=== PATIENT | female | born 1990 | race Caucasian/White ===

== ENCOUNTER 2020-04-30 04:57 | Observation (INO) | payer MEDICAID, SELFPAY ==
--- NOTE | ~2020-04-30 | CT_ITS ---
EXAMINATION: CT abdomen pelvis w con DATE: 04/30/2020 07:34 INDICATION: Left flank pain TECHNIQUE: Computed tomography (CT) of the abdomen and pelvis was performed with 100 cc Omnipaque 350 intravenous contrast. Automated exposure control and iterative reconstruction technique were employe d. Exam dose: 367.77 mGy-cm total exam DLP. COMPARISON: 04/06/2018 KUB FINDINGS: There are patchy pulmonary infiltrates of the middle lobe and both lower lobes. Normal heart size. No pericardial or pleural effusion. The liver, gallbladder, bile ducts, spleen, pancreas and pancreatic duct as well as adrenal glands an d kidneys are unremarkable. No urinary tract calculus or hydroureteronephrosis is evident. Normal caliber of the abdominal aorta. No intraperitoneal or retroperitoneal or pelvic mass lesion or adenopathy or ascites. Normal appendix. No bowel obstruction, bowel wall thickening, pneumatosis or intraperitoneal free air is evident. Included skeletal structures are unremarkable. IMPRESSION: No urinary tract calculus or hydroureteronephrosis Reviewed, dictated and finalized at [facility]. Reviewed, dictated and finalized at location A.
--- NOTE | ~2020-04-30 | XR_ITS ---
XR chest 1V portable DATE: 04/30/2020 09:47 INDICATION: Pneumonia TECHNIQUE: Portable upright AP chest on 04/30/2020 at 0949 hours COMPARISON: None FINDINGS: There are patchy infiltrates in the mid to lower lung zones, left greater than right, inclu ding some patchy consolidation on the left, involving particularly the lower lobe. Heart size is normal. No hilar or mediastinal enlargement. No pleural effusion or pulmonary vascular congestion or pneumothorax. Included skeletal structures are unremarkable. IMPRESSION: Bilateral patchy mid to lower lungs infiltrates, left greater than right, consistent with clinical diagnosis of pneumonia Reviewed, dictated and finalized at location B.
--- NOTE | ~2020-04-30 | CT_ITS ---
EXAMINATION: CTA chest PE protocol DATE: 04/30/2020 10:28 INDICATION: Severe left lower chest pain TECHNIQUE: Computed tomography angiography (CTA) of the chest was performed with 100 mL Omnipaque-350 intravenous contrast timed to evaluate the pulmonary arteries. Coronal maximum intensity projection 3D-reconstructions were created by the technologist. The dose-length product (DLP) was 153.87 mGy-cm. Automated exposure control and iterative reconstruction technique were employed. COMPARISON: None. FINDINGS: The pulmonary arteries are well-opacified. No pulmonary embolism is identified. There are p atchy nodular and airspace opacities of the lower lobes and right middle lobe, worst in the left lowe r lobe. Endobronchial material is seen in the lower lobes. There is no pleural effusion or pneumothor ax. Borderline size perihilar lymph nodes are likely reactive. Triangular soft tissue density of the anterior mediastinum is consistent with residual thymus. The heart size is normal. The visualized oss eous structures are unremarkable. IMPRESSION: 1. No pulmonary embolism. 2. Multifocal pneumonia with endobronchial mucous in the lower lobes. Reviewed, dictated and finalized at location A.
--- NOTE | 2020-04-30 05:04 | ED.ABDPAIN ---
HPI - Abdominal Pain General Chief Complaint: Abdominal Pain <Marisol Reagan MD - Last Filed: 05/01/20 12:27> Stated Complaint: abd pain <Marisol Reagan MD - Last Filed: 05/01/20 12:27> Time Seen by Provider: 04/30/20 05:02 <Marisol Reagan MD - Last Filed: 05/01/20 12:27> History of Present Illness HPI narrative: Patient presents with severe left flank pain. Started last night about 5:00. She gauges that 11 out of 1-10 scale. She says that she cannot sit up or lay on her back. She is on the exam table with her bottom up in the air, resisting help with undressing. She said she has nausea but no vomiting. She is never had pain like this before. When I asked her if she does drugs she said no, and I confronted her with her previous drug screen which was positive for marijuana and amphetamines. Then she admitted that she does them. <Marisol Reagan MD - Last Filed: 05/01/20 12:27> MD elicited complaint: abdominal pain <Marisol Reagan MD - Last Filed: 05/01/20 12:27> Pertinent past history: none <Marisol Reagan MD - Last Filed: 05/01/20 12:27> Onset (ago): hour(s) <Marisol Reagan MD - Last Filed: 05/01/20 12:27> Pain Consistency: constant <Marisol Reagan MD - Last Filed: 05/01/20 12:27> Location: L flank <Marisol Reagan MD - Last Filed: 05/01/20 12:27> Severity: severe <Marisol Reagan MD - Last Filed: 05/01/20 12:27> Radiation: none <Marisol Reagan MD - Last Filed: 05/01/20 12:27> Exacerbating factors: movement <Marisol Reagan MD - Last Filed: 05/01/20 12:27> Relieving factors: nothing <Marisol Reagan MD - Last Filed: 05/01/20 12:27> Related Data Home Medications: Home Medications Medication Instructions Recorded Confirmed No Home Medications 04/30/20 04/30/20 <Marisol Reagan MD - Last Filed: 05/01/20 12:27> Allergies/Adverse Reactions: Allergies Allergy/AdvReac Type Severity Reaction Status Date / Time Penicillins Allergy Unknown Unknown Verified 04/30/20 05:04 <Marisol Reagan MD - Last Filed: 05/01/20 12:27> Review of Systems Review of Systems: Narrative: CONSTITUTIONAL: Denies fever, chills, or sweats. EYES: Denies visual changes, redness, or discharge. ENT: Denies rhinorrhea, congestion, sore throat, or otalgia. CARDIOVASCULAR: Denies chest pain, palpitations, or edema. RESPIRATORY: Denies cough or dyspnea. GASTROINTESTINAL: She has severe abdominal pain, but not nausea, vomiting, or diarrhea. GENITOURINARY: Denies dysuria or hematuria. SKIN: Denies rash or itching. MUSCULOSKELETAL: Denies back pain, joint pain, or myalgia. NEUROLOGIC: Denies headache, numbness, or weakness. . <Marisol Reagan MD - Last Filed: 05/01/20 12:27> All systems reviewed & are unremarkable except as noted in HPI and below <Marisol Reagan MD - Last Filed: 05/01/20 12:27> [facility] Past Medical History Medical History: Medical History (Updated 04/30/20 @ 18:08 by Marilee Hill MD) Abscess incision and drainage of an abscess to her arm. Polysubstance abuse she was found to be positive for amphetamines and marijuana today STD exposure <Marisol Reagan MD - Last Filed: 05/01/20 12:27> Surgical History Surgical History: Surgical History (Updated 04/30/20 @ 05:16 by Marisol Reagan MD) No pertinent past surgical history <Marisol Reagan MD - Last Filed: 05/01/20 12:27> Family History Family History: Family History (Updated 04/30/20 @ 17:11 by Lizzie Paris NP) Unknown Healthy adult the patient stated that her parents are healthy and siblings are healthy. Her her sister had been a heroin addict but states that her sister has recovered. <Marisol Reagan MD - Last Filed: 05/01/20 12:27> Social History Social History: Social History (Updated 04/30/20 @ 17:13 by Lizzie Paris NP) Social History: The patient stated that she lives with her significant other. She was supposed to start working
[2020-04-30 05:05] VITALS: BP 137/88; PULSE 106; RESP 17; TEMP 37; O2SAT 95
[2020-04-30] MEDS: SODIUM CHLORIDE 0.9% IV 1,000 ML 999 ML IV CONT (05:32)
[2020-04-30] MEDS: MORPHINE SULFATE 4 MG/ML INJ IV PUSH ×2 (05:34→10:49)
[2020-04-30] MEDS: ONDANSETRON INJ 4 MG/2 ML VIAL IV PUSH (05:42)
[2020-04-30 05:53] LABS: Basophils Absolute Auto 0.1 K/mm3 (0.0-0.1); Basophils Percent Auto 0.3 % (0.2-1.2); Eosinophils Percent Auto 0.2 % (0-4.4); Hematocrit 37.6 % (37.0-47.0); Hemoglobin 12.3 g/dL (12.0-15.0); Immature Granulocyte Absolute 0.11 K/mm3 (0.00-0.031); Immature Granulocyte Percent A 0.6 % (0-0.5); Lymphocytes Absolute Auto 1.74 K/mm3 (0.9-3.2); Lymphocytes Percent Auto 9.2 % (18.3-44.2); Mean Corpuscular HGB Conc 32.7 g/dl (32-36); Mean Corpuscular Volume 82.5 fl (80-100); Mean Platelet Volume 10.5 fl (7.4-10.4); Monocytes Percent Auto 5.3 % (2.6-8.5); Neutrophils Percent Auto 84.4 % (45.5-73.1); Platelet Count Result 230 k/mm3 (150-375); Red Blood Count 4.56 M/mm3 (4.2-5.4); Red Cell Distribution Width 13.1 % (11.5-14.5); White Blood Count 18.9 K/mm3 (4.5-10.0)
--- NOTE | 2020-04-30 06:03 | PC.NURSE ---
pt encouraged to provide urine specimen at this time
[2020-04-30 06:16] LABS: Alanine Aminotransferase 47 U/L (4-35); Albumin Level 4.3 g/dL (3.5-5.1); Alkaline Phosphatase 93 U/L (38-126); Anion Gap 12.2 mmol/L (7-16); Aspartate Amino Transferase 44 U/L (14-36); Bilirubin,Total 0.9 mg/dL (0.2-1.3); Blood Urea Nitrogen 12 mg/dL (7-17); Calcium 8.7 mg/dL (8.4-10.2); Carbon Dioxide 25 mmol/L (22-30); Chloride 100 mmol/L (98-107); Estimated CRCL calculation 91 ml/min; Estimated Glomerular Filt Rate > 60; Glucose 136 mg/dL (65-105); Potassium 4.2 mmol/L (3.4-5.0); Sodium 133 mmol/L (137-145)
[2020-04-30 06:17] LABS: Lipase < 10 U/L (23-300)
[2020-04-30 06:27] LABS: Ethanol < 10 mg/dL (<10)
[2020-04-30 06:36] VITALS: BP 115/77; PULSE 104; RESP 17; O2SAT 98
[2020-04-30 07:39] LABS: Add Urine Microscopic? YES; Appearance Urine Cloudy (Clear); Bacteria Urine 1+ /hpf; Bilirubin Urine 1+ (Negative); Blood Urine Negative (Negative); Glucose Urine UA Negative (Negative); Ketones Urine Negative (Negative); Leukocyte Esterase Ur Negative LEU/UL (Negative); Mucus Urine Heavy /lpf; Nitrate Urine Negative (Negative); Protein Urine 1+ mg/dL (Negative); RBC Urine 0-2 /hpf (0-2); Squamous Epithelial Cell Urine Occasional /hpf (Few)
[2020-04-30 07:40] LABS: Specific Grav Ur 1.034 (1.001-1.035)
[2020-04-30 07:41] LABS: Color Urine Dark Yellow (Yellow)
[2020-04-30] MEDS: KETOROLAC 30 MG/ML VIAL (*BKC) IV PUSH (08:12)
[2020-04-30 08:16] LABS: Barbiturate Screen Urine Negative (Negative); Benzodiazepines Screen Urine Negative (Negative)
[2020-04-30 08:26] LABS: Amphetamine Screen Urine Positive (Negative)
[2020-04-30 08:29] LABS: Cannabinoid Screen Urine Positive (Negative); Cocaine Screen Urine Negative (Negative); Methadone Screen Urine Negative (Negative); Opiate Screen Urine Positive (Negative); Phencyclidine Screen Urine Negative (Negative)
[2020-04-30 09:15] LABS: INR 1.2; Prothrombin Time 15.3 Seconds (11.1-14.7)
[2020-04-30 09:16] LABS: Partial Thromboplastin Time 35.9 SECONDS (22.3-36.8)
[2020-04-30 09:18] LABS: D Dimer 0.77 ug/mL (<0.48)
[2020-04-30 09:48] LABS: Lactate Dehydrogenase 433 U/L (313-618)
[2020-04-30 12:00] VITALS: BP 112/70; PULSE 102; RESP 20; O2SAT 98
[2020-04-30 14:00] VITALS: BP 110/74; PULSE 101; RESP 20; O2SAT 98
[2020-04-30] MEDS: SODIUM CHLORIDE 0.9% IV 1,000 ML 125 ML IV CONT (14:50)
[2020-04-30 14:52] VITALS: BMI 22.0
--- NOTE | 2020-04-30 15:01 | ADMGEN ---
This patient, Mary Heredia, was admitted to [facility] Surg Room 329-01. Patient/family oriented to hospital policies and general routines including ID bracelet, bed and alarms, visiting hours, pain management, procedures, bathroom and other care routines, personal items, smoking policy, room service/diet, and visiting hours. Valuables list has been completed. Information on how to activate the Rapid Response Team has been discussed. Patient/Family are encouraged to report perceived risks to care and to ask questions if they do not understand what they are told or what they should do.
[2020-04-30 15:14] VITALS: BP 104/54; PULSE 97; RESP 16; TEMP 36.1; O2SAT 92
--- NOTE | 2020-04-30 16:58 | PM.IMHP ---
H&P: HPI History of Present Illness Date/Time: 04/30/20 16:58 Chief complaint: multifocal pneumonia,under investigation for covid Narrative: Mary Heredia is a 29 year old female Has a past medical history of IV drug use with methamphetamines. The patient denies any COVID exposure. She states that she does not know any people that do have COVID. She said that she does not have any fever. The patient came to the emergency room with severe left flank pain. This pain started around 5:00 a.m. last night. She said she can set up early down and because of her back pain. She had some nausea but was not vomiting. The patient stated that she has been clean for several years but had an episode where she did use meth and feels like it was laced with heroin a couple days ago. The patient was swabbed for covid 19 and was placed in isolation room on the floor. Her white count was noted to be 18.9. He year her urine test was negative. Chest x-ray was read by radiology is bilateral patchy mid to lower lung infiltrates left greater than right consistent with clinical diagnosis of pneumonia. Abdominal pelvis CT no urinary tract calculus or hydro ureteral nephrosis. The patient was started on Rocephin a Zithromax in. She was given morphine for the pain she was also given Toradol x1. And Zofran she was started on IV fluids. She stated that the morphine did not help I ordered a 1 time dose of Toradol. I spent approximately 60 minutes with the patient been due to COVID isolation. Date of service is 04/30/2020 Review of Systems Review of Systems: All systems reviewed & are unremarkable except as noted in HPI and below Constitutional: Constitutional: Reports as per HPI and Reports no additional constitutional complaints Eyes: Eyes: Reports as per HPI and Reports no additional eye complaints ENT: Reports system reviewed and no additional complaints, except as documented and Reports Normal hearing present Cardiovascular: Cardiovascular: Reports no additional cardiovascular complaints Respiratory: Respiratory: Reports no additional respiratory complaints and Reports no additional respiratory complaints Gastrointestinal: Gastrointestinal: Reports as per HPI and Reports no additional gastrointestinal complaints Musculoskeletal: Musculoskeletal: Reports no additional musculoskeletal complaints Integumentary/Breasts: Skin/Breast: Reports system reviewed and no additional complaints, except as docu and Reports as per HPI Neurologic: Reports system reviewed and no additional complaints, except as documented, Reports as per HPI and Reports Normal hearing present Psychiatric: Psychiatric: Reports no additional psychiatric complaints and Reports as per HPI Endocrine: Endocrine: Reports no additional endocrine complaints Hematologic/Lymphatic: Hematologic/Lymphatic: Reports no additional hematologic/lymphatic complaints Allergic/Immunologic: Allergic/Immunologic: Reports no additional allergic/immunologic complaints PMFSH Past Medical History Medical History (Updated 04/30/20 @ 17:22 by Lizzie Paris NP) Abscess incision and drainage of an abscess to her arm. Polysubstance abuse she was found to be positive for amphetamines and marijuana today STD exposure Surgical History Surgical History (Updated 04/30/20 @ 05:16 by Marisol Reagan MD) No pertinent past surgical history Family History Family History (Updated 04/30/20 @ 17:11 by Lizzie Paris NP) Unknown Healthy adult the patient stated that her parents are healthy and siblings are healthy. Her her sister had been a heroin addict but states that her sister has recovered. Social History Social History (Updated 04/30/20 @ 17:13 by Lizzie Paris NP) Social History: The patient stated that she lives with her significant other. She was supposed to start working prior to COV but then was not able to work since everything was shut down. She stated that she use
--- NOTE | 2020-04-30 17:10 | PC.NURSE ---
Addendum entered by Primo Win RN 04/30/20 20:34: Pt IV was still running when I looked for pt. Tubing present but no catheter/J loop present. Original Note: Pt called out asking for additional pain relief. When I went to admin her toradol, charge auditor and aide informed pt not in her room and back fire exit door alarm sounding. Pt not in room. Went downstairs looking in basement for patient, while house sup looked on first floor. Security and Lizzie Paris notified.
--- NOTE | 2020-04-30 17:56 | PC.NURSE ---
Addendum entered by Mikey Hammer RN 04/30/20 18:50: The milk house worker actually called the patient and was able to get ahold of her. The patient did not call the milk house worker. Original Note: I was notified that the patient was missing from her room at 1710. The back stairwell alarm was sounding. Myself, milk house worker, and the RN taking care of the patient went down the stairs to look for her. I called and notified security. Security searched the hospital and checked the video cameras. I called the patients phone 3 times and she did not answer. I called the patients mom and informed her that her daughter had left with her IV in place and that we needed to obtain the IV back. I asked the mom to please contact her daughter and inform her that she needed to return to the hospital or the police would be notified. Lizzie Paris NP was called and notified that the patient had eloped. The police were notified of the patient. The patient called the milk house worker and said that she took out the IV and threw it away. The milk house worker told her that she had to come back to the hospital and show nursing staff that the IV was out. The patient stated she would come back to show she no longer had the IV. I informed security of this and they said they would contact [place] police.
[2020-04-30 18:52] LABS: SARS-CoV-2 RNA PCR Negative
--- NOTE | 2020-05-01 15:27 | PC.NURSE ---
05/01/20202119 Mary returned to main entrance to have IV site removal verified. Stated she threw the IV catheter in sharps box in room 329 before eloping. No IV access noted in bilateral arms. Security remained at front entrance until Mary departed. Mary left without further incident.
== END 2020-04-30 17:10 | disposition left against medical advice (07) ==
LOC: ANHED 07:06 → ANH3MEDSUR 11:50
PROVIDERS: Emergency Medicine; Admitting Provider Internal Medicine; Emergency Provider General Practice; Visit Provider Internal Medicine
DX: J18.9 Pneumonia, unspecified organism (principal); Z20.828 Contact with and (suspected) exposure to other viral communicable diseases; R10.9 Unspecified abdominal pain; F19.10 Other psychoactive substance abuse, uncomplicated; F17.210 Nicotine dependence, cigarettes, uncomplicated; F12.90 Cannabis use, unspecified, uncomplicated
CPT/HCPCS: 36415; 51701; 71045; 71275; 74177; 80053; 80307; 81001; 81025; 82728; 83605; 83615; 83690; 85025; 85380; 85610; 85730; 87040; 87077; 87086; 87088; 87186; 87635; 96361; 96365; 96375; 96376; 99285; C9803; G0378; G0379; J0131; J0456; J0696; J1885; J2270; J2405; J7030; Q9967; U0003

== ENCOUNTER 2020-10-29 11:57 | Emergency (ER) | payer BC, SELFPAY ==
--- NOTE | 2020-10-29 12:00 | ED.OVERDOSE ---
HPI - Overdose General Chief Complaint: Overdose Stated Complaint: Overdose, Injestion Source: patient Mode of arrival: EMS Limitations: no limitations History of Present Illness HPI Narrative: A 30-year-old female presents to the emergency department tonight with complaints of a possible overdose. She was reportedly pulled over by police, had drugs in the car. She states to keep from getting busted for them or from anyone else getting in trouble for the drugs in her car she swallowed them all. Patient states that she had somewhere around maybe 10 pills she estimates. She states that she thinks that it was meth, fentanyl and may be Xanax. Patient states that she feels both jittery and tired. Related Data Home Medications Medication Instructions Recorded Confirmed No Home Medications 04/30/20 10/29/20 Allergies Allergy/AdvReac Type Severity Reaction Status Date / Time Penicillins Allergy Unknown Unknown Verified 10/29/20 12:15 Review of Systems Review of Systems: Narrative: CONSTITUTIONAL: Denies fever, chills, or sweats. EYES: Denies visual changes, redness, or discharge. ENT: Denies rhinorrhea, congestion, sore throat, or otalgia. CARDIOVASCULAR: Denies chest pain, palpitations, or edema. RESPIRATORY: Denies cough or dyspnea. GASTROINTESTINAL: Denies abdominal pain, nausea, vomiting, or diarrhea. GENITOURINARY: Denies dysuria or hematuria. SKIN: Denies rash or itching. MUSCULOSKELETAL: Denies back pain, joint pain, or myalgia. NEUROLOGIC: Denies headache, numbness, dizziness, or weakness. PSYCHIATRIC: Denies anxiety or depression. [facility] Past Medical History Medical History Abscess incision and drainage of an abscess to her arm. Polysubstance abuse she was found to be positive for amphetamines and marijuana today STD exposure Surgical History Surgical History No pertinent past surgical history Family History Family History Unknown Healthy adult the patient stated that her parents are healthy and siblings are healthy. Her her sister had been a heroin addict but states that her sister has recovered. Social History Social History Social History: The patient stated that she lives with her significant other. She was supposed to start working prior to COV but then was not able to work since everything was shut down. She stated that she used to use meth and she shot up with it. She denied any heroin. However she recently smoke some meth and stated she had a week moment and smokes marijuana and had meth and possibly fentanyl with that. She has 1 child but she does not have custody of. She does not have a durable power collections attorney for healthcare. And she is a full code. She stated she has not smoked in a couple days and she has not felt well. But typically smokes a half pack to a pack a cigarettes a day. She denies any alcohol. Smoking packs per day: 0.5 Smoking cigarettes per day: 10.0 Years smoked: 15 Smoking pack-years: 7.50 Smoking status: Current every day smoker Alcohol intake: unknown Substance use: unknown Substance use type: marijuana and methamphetamine Last use: 2-3 weeks ago Gender identity (if verbalized by the patient): Female Spiritual care concerns: No Exam Narrative: Exam Narrative: GENERAL: Well-appearing, well-nourished, and in no acute distress. HEAD: Normocephalic, atraumatic. EYES: PERRLA and EOMI. ENT: Nares clear, no rhinorrhea or epistaxis. Mucous membranes moist. NECK: Supple. No adenopathy or masses. No carotid bruits or JVD CHEST: Clear to auscultation. No respiratory distress. No wheezes rales or rhonchi HEART: Regular rate and rhythm. No murmur heard. Normal peripheral pulses. ABDOMEN: Soft, nontender, nondistended, normal active
[2020-10-29 12:01] VITALS: BP 128/83; PULSE 109; RESP 12; TEMP 36.8; O2SAT 96
[2020-10-29 12:08] VITALS: RESP 15
--- NOTE | 2020-10-29 12:10 | PC.NURSE ---
Patient refusing IV at this time.
--- NOTE | 2020-10-29 12:14 | ECG_ITS ---
Measurements Intervals [place] Rate: 100 P: 72 PA: 125 QRS: 72 QRSD: 90 T: 37 QT: 326 QTc: 421 Interpretive Statements SINUS TACHYCARDIA BASELINE ARTIFACT- I, II, III, AVL BORDERLINE ECG Electronically Signed On 10-29-2020 13:10:28 [employer] by Toño Kwan D.O.
[2020-10-29 12:35] VITALS: BP 123/77; PULSE 94; RESP 11; O2SAT 97
[2020-10-29 12:38] LABS: Barbiturate Screen Urine Negative (Negative); Benzodiazepines Screen Urine Negative (Negative)
[2020-10-29 12:47] LABS: Cannabinoid Screen Urine Positive (Negative); Cocaine Screen Urine Negative (Negative); Methadone Screen Urine Negative (Negative); Opiate Screen Urine Positive (Negative); Phencyclidine Screen Urine Negative (Negative)
[2020-10-29 12:55] LABS: Amphetamine Screen Urine Positive (Negative)
--- NOTE | 2020-10-29 13:25 | PC.NURSE ---
Blood attempted multiple times by multiple staff members without success. Lab called due to draws being unsuccessful.
[2020-10-29 13:33] LABS: Basophils Absolute Auto 0.1 K/mm3 (0.0-0.1); Basophils Percent Auto 0.8 % (0.2-1.2); Eosinophils Absolute Auto 0.6 K/mm3 (0-0.3); Eosinophils Percent Auto 7.1 % (0-4.4); Immature Granulocyte Absolute 0.01 K/mm3 (0.00-0.031); Immature Granulocyte Percent A 0.1 % (0-0.5); Lymphocytes Absolute Auto 1.76 K/mm3 (0.9-3.2); Lymphocytes Percent Auto 22.4 % (18.3-44.2); Mean Corpuscular HGB Conc 32.4 g/dl (32-36); Mean Corpuscular Hemoglobin 26.6 pg (26-34); Mean Platelet Volume 9.4 fl (7.4-10.4); Monocytes Absolute Auto 0.5 K/mm3 (0.1-0.6); Neutrophils Percent Auto 63.6 % (45.5-73.1); Platelet Count Result 283 k/mm3 (150-375); Red Blood Count 4.51 M/mm3 (4.2-5.4); Red Cell Distribution Width 13.4 % (11.5-14.5); White Blood Count 7.9 K/mm3 (4.5-10.0)
[2020-10-29 13:39] VITALS: BP 100/62; PULSE 92; RESP 11; O2SAT 97
[2020-10-29 13:44] LABS: Acetaminophen < 10 ug/mL (10-30); Salicylate < 1.0 mg/dL (2-20)
[2020-10-29 13:45] LABS: Anion Gap 5 mmol/L (8-16); Blood Urea Nitrogen 12 mg/dL (7-17); Calcium 8.8 mg/dL (8.4-10.2); Carbon Dioxide 31 mmol/L (22-30); Chloride 102 mmol/L (98-107); Estimated CRCL calculation 80 ml/min; Estimated Glomerular Filt Rate > 60; Glucose 99 mg/dL (65-105); Potassium 4.1 mmol/L (3.4-5.0); Sodium 138 mmol/L (137-145)
[2020-10-29 14:54] VITALS: BP 125/72; PULSE 102; RESP 15; O2SAT 96
--- NOTE | 2020-10-29 15:02 | PC.NURSE ---
Patient left against medical advice, EDP and charge aware at this time. Patient is alert x4 and walked out of ED without difficulty and in no distress.
== END 2020-10-29 15:04 | disposition left against medical advice (07) ==
PROVIDERS: Emergency Provider Emergency Medicine
DX: F19.10 Other psychoactive substance abuse, uncomplicated (principal); T50.901A Poisoning by unspecified drugs, medicaments and biological substances, accidental (unintentional), initial encounter; F17.210 Nicotine dependence, cigarettes, uncomplicated
CPT/HCPCS: 36415; 80048; 80307; 81025; 85025; 93005; 99283

== ENCOUNTER 2021-09-11 22:46 | Emergency (ER) | payer BC, SELFPAY ==
--- NOTE | 2021-09-11 22:51 | PC.NURSE ---
pt. amb out of ed w/ steady gait. pt. NAD upon departure
== END 2021-09-12 05:35 | disposition left against medical advice (07) ==
DX: Z53.21 Procedure and treatment not carried out due to patient leaving prior to being seen by health care provider (principal)
CPT/HCPCS: 99199

== ENCOUNTER 2021-12-02 16:28 | Emergency (ER) | payer BC, SELFPAY ==
[2021-12-02] VITALS (24 sets, daily range): BP systolic 119–130; BP diastolic 72–86; PULSE 74–109; RESP 6–16; TEMP 36.4–36.6; O2SAT 99–100
--- NOTE | ~2021-12-02 | CT_ITS ---
EXAMINATION: CT abdomen pelvis wo con DATE: 12/02/2021 17:53 INDICATION: Ingested a baggy of methamphetamine/fentanyl. TECHNIQUE: Computed tomography (CT) of the abdomen and pelvis was performed without intravenous contr ast. Automated exposure control and iterative reconstruction technique were employed. The dose-length product was 211.39 mGy-cm. COMPARISON: 04/30/2020 FINDINGS: Minimal bibasilar atelectasis. Heart size is normal. No pericardial or pleural effusion. Liver, gallb ladder, pancreas, spleen, bilateral adrenal glands and kidneys are normal. Bowels including the appen kandy are normal. Moderate amount of stool scattered throughout the colon. No evident ingested foreign bodies identified. Bladder, anteverted uterus and bilateral adnexa are unremarkable. No free intraper itoneal gas or fluid. No pathologically enlarged abdominal or pelvic lymphadenopathy. Mild lower thor acic spondylosis. IMPRESSION: 1. Normal CT of the abdomen and pelvis. No ingested foreign bodies identified. Reviewed, dictated and finalized at location A. [employer]ING TRUCK OPERATOR
--- NOTE | 2021-12-02 16:53 | PC.NURSE ---
patient states that her hands are numb. radial pulses present and strong. warm blanket given
--- NOTE | 2021-12-02 17:02 | ECG_ITS ---
Measurements Intervals [place] Rate: 90 P: 65 NE: 148 QRS: 79 QRSD: 86 T: 42 QT: 355 QTc: 436 Interpretive Statements SINUS RHYTHM BASELINE ARTIFACT POSSIBLE LEFT ATRIAL ENLARGEMENT [-0.1mV P-WAVE IN V1/V2] COMPARED TO ECG 10/29/2020 12:11:12 HEART RATE HAS DECREASED Electronically Signed On 12-03-2021 13:43:45 INTERNIST by Richard Lopez M.D.
--- NOTE | 2021-12-02 17:03 | ED.OVERDOSE ---
HPI - Overdose General Chief Complaint: Overdose Stated Complaint: ingestion of drugs, in police custody Time Seen by Provider: 12/02/21 16:51 Source: patient and police Mode of arrival: ambulatory Limitations: no limitations History of Present Illness HPI Narrative: Pt is a 31 y/o female, presents to ED in police custody with [employer] at . Pt indicates she ingested a baggy of 10 pills-powdered of Fentanyl, as well as, a baggy of methamphetamine, approximately 40 minutes ago. She indicates she took these to prevent being caught with the drugs on her person. She reports feeling a little tingly but denies excessive drowsiness, CP, SOB, abdominal pain, NVDC Or urinary symptoms. The officer at advises he does not believe her story, noting she has changed her CC several times and at the time she indicates she took the drugs. She is a daily user of both fentanyl and methamphetamine. She typically snorts both drugs. She denies SI or HI. She denies any additional complaints. She is uncertain if she is . complaint: intentional overdose Intent: other Context: Intentional Overdose: drug/ETOH problems Context: Accidental Overdose: other (refer to HPI) Treatments Prior to Arrival: none Related Data Home Medications Medication Instructions Recorded Confirmed No Home Medications 04/30/20 10/29/20 Allergies Allergy/AdvReac Type Severity Reaction Status Date / Time Penicillins Allergy Unknown Unknown Verified 10/29/20 12:15 Review of Systems Review of Systems: refer to HPI Constitutional: Constitutional: Reports as per [place] Past Medical History Medical History Abscess incision and drainage of an abscess to her arm. Polysubstance abuse she was found to be positive for amphetamines and marijuana today STD exposure Surgical History Surgical History No pertinent past surgical history Family History Family History Unknown Healthy adult the patient stated that her parents are healthy and siblings are healthy. Her her sister had been a heroin addict but states that her sister has recovered. Social History Social History Social History: The patient stated that she lives with her significant other. She was supposed to start working prior to COVID but then was not able to work since everything was shut down. She stated that she used to use meth and she shot up with it. She denied any heroin. However she recently smoke some meth and stated she had a week moment and smokes marijuana and had meth and possibly fentanyl with that. She has 1 child but she does not have custody of. She does not have a durable power contract attorney for healthcare. And she is a full code. She stated she has not smoked in a couple days and she has not felt well. But typically smokes a half pack to a pack a cigarettes a day. She denies any alcohol. Smoking packs per day: 0.5 Smoking cigarettes per day: 10.0 Years smoked: 15 Smoking pack-years: 7.50 Smoking status: Current every day smoker Alcohol intake: unknown Substance use: unknown Substance use type: marijuana and methamphetamine Last use: 2-3 weeks ago Gender identity (if verbalized by the patient): Female Spiritual care concerns: No Exam Const: General: no acute distress and alert Orientation/consciousness: patient oriented x3 Other: appears older than stated age HENMT: Head: normal to inspection Eyes: Conjunctivae: conjunctivae normal Pupils: Equal, round and reactive pupils present EOM: EOMs intact bilaterally Neck: Neck: normal visual inspection Chest: Chest palpation & inspection: normal inspection of the chest Resp: Effort & Inspection: normal respiratory effort Auscultation: clear to ausculta
[2021-12-02 17:42] LABS: Basophils Absolute Auto 0.1 K/mm3 (0.0-0.1); Basophils Percent Auto 0.8 % (0.2-1.2); Eosinophils Absolute Auto 0.4 K/mm3 (0-0.3); Eosinophils Percent Auto 5.8 % (0-4.4); Immature Granulocyte Absolute 0.01 K/mm3 (0.00-0.031); Immature Granulocyte Percent A 0.2 % (0-0.5); Lymphocytes Percent Auto 25.6 % (18.3-44.2); Mean Corpuscular HGB Conc 31.6 g/dl (32-36); Mean Corpuscular Hemoglobin 27.1 pg (26-34); Mean Corpuscular Volume 85.8 fl (80-100); Monocytes Absolute Auto 0.4 K/mm3 (0.1-0.6); Monocytes Percent Auto 6.4 % (2.6-8.5); Neutrophils Absolute Auto 3.8 K/mm3 (1.3-6.7); Neutrophils Percent Auto 61.2 % (45.5-73.1); Platelet Count Result 262 k/mm3 (150-375); Red Blood Count 4.43 M/mm3 (4.2-5.4); Red Cell Distribution Width 13.9 % (11.5-14.5); White Blood Count 6.3 K/mm3 (4.5-10.0)
[2021-12-02 17:47] LABS: Acetaminophen < 10 ug/mL (10-30); Ammonia < 9 umol/L (9-30)
[2021-12-02 18:08] LABS: Add Urine Microscopic? YES; Appearance Urine Cloudy (Clear); Bacteria Urine Trace /hpf; Bilirubin Urine Negative (Negative); Blood Urine Negative (Negative); Color Urine Yellow (Yellow); Glucose Urine UA Negative (Negative); Ketones Urine Negative (Negative); Leukocyte Esterase Ur Trace LEU/UL (Negative); Mucus Urine Rare /lpf; Nitrate Urine Negative (Negative); Protein Urine Negative (Negative); Specific Grav Ur 1.018 (1.001-1.035); Squamous Epithelial Cell Urine Rare /hpf (Few); Urobilinogen Urine Negative mg/dL (<2.0)
[2021-12-02 18:18] LABS: Barbiturate Screen Urine Positive (Negative); Benzodiazepines Screen Urine Negative (Negative)
[2021-12-02 18:30] LABS: Cannabinoid Screen Urine Negative (Negative); Cocaine Screen Urine Negative (Negative); Methadone Screen Urine Negative (Negative); Opiate Screen Urine Negative (Negative); Phencyclidine Screen Urine Negative (Negative)
[2021-12-02 18:46] LABS: Amphetamine Screen Urine Positive (Negative)
[2021-12-02 19:35] LABS: Alanine Aminotransferase 147 U/L (4-35); Alkaline Phosphatase 94 U/L (38-126); Anion Gap 5 mmol/L (8-16); Aspartate Amino Transferase 101 U/L (14-36); Bilirubin,Total 0.3 mg/dL (0.2-1.3); Blood Urea Nitrogen 13 mg/dL (7-17); Calcium 8.9 mg/dL (8.4-10.2); Carbon Dioxide 27 mmol/L (22-30); Chloride 103 mmol/L (98-107); Estimated Glomerular Filt Rate > 60; Glucose 116 mg/dL (65-110); Potassium 4.6 mmol/L (3.4-5.0); Sodium 135 mmol/L (137-145)
== END 2021-12-02 20:06 ==
PROVIDERS: Emergency Provider Nurse Practitioner Family
DX: F19.10 Other psychoactive substance abuse, uncomplicated (principal); F17.210 Nicotine dependence, cigarettes, uncomplicated
CPT/HCPCS: 36415; 51701; 74176; 80053; 80307; 81001; 81025; 82140; 82248; 85025; 93005; 99284

== ENCOUNTER 2023-04-21 03:42 | Emergency (ER) | payer BC, SELFPAY ==
--- NOTE | ~2023-04-21 | XR_ITS ---
Supine and upright views of the abdomen Clinical history: Ingestion Findings: Bowel gas pattern is nonspecific. No evidence for obstruction or free air. No abnormal mass lesion or calcification is seen. Osseous structures are intact. Impression: No significant abnormality is seen. Reviewed, dictated and finalized at [facility]. Impression: No significant abnormality is seen.
--- NOTE | ~2023-04-21 | XR_ITS ---
Portable chest x-ray Comparison: 04/30/2020 Clinical History: Ingestion Findings: Lungs are clear, without focal consolidation or pleural effusion. Cardiomediastinal silho uette is stable. Bones and soft tissues are unremarkable. Impression: Clear lungs. Reviewed, dictated and finalized at location . Impression: Clear lungs.
[2023-04-21 03:43] VITALS: BP 136/88; PULSE 88; RESP 15; TEMP 36.3; O2SAT 100
--- NOTE | 2023-04-21 03:53 | ECG_ITS ---
Measurements Intervals [place] Rate: 80 P: 64 NC: 143 QRS: 66 QRSD: 96 T: 44 QT: 380 QTc: 440 Interpretive Statements SINUS RHYTHM BASELINE ARTIFACT- I, II, AVR, AVL, V1-V2 NORMAL ECG COMPARED TO ECG 12/02/2021 17:24:16 NO SIGNIFICANT CHANGES Electronically Signed On 04-25-2023 8:52:43 CDT by Toño Kwan D.O.
--- NOTE | 2023-04-21 04:08 | ED.GENADULT ---
HPI - General Adult General Chief complaint: Overdose Stated complaint: overdose Time Seen by Provider: 04/21/23 03:54 History of Present Illness HPI narrative: 32 year old female presented after ingestion. Per patient, she was pulled over by the police, and in a panic she swallowed her bag of drugs. She reports that it had several types of drugs but does not know the contents. She denied suicidal intention with this. This was approximately 3 hrs prior to ED presentation. Denied chest pain, shortness of breath, abdominal pain, diarrhea. Related Data Home Medications Medication Instructions Recorded Confirmed No Home Medications 04/30/20 10/29/20 Allergies Allergy/AdvReac Type Severity Reaction Status Date / Time Penicillins Allergy Unknown Unknown Verified 04/21/23 03:47 Review of Systems Review of Systems: See HPI [facility] Past Medical History Medical History Abscess incision and drainage of an abscess to her arm. Polysubstance abuse she was found to be positive for amphetamines and marijuana today STD exposure Surgical History Surgical History No pertinent past surgical history Family History Family History Unknown Healthy adult the patient stated that her parents are healthy and siblings are healthy. Her her sister had been a heroin addict but states that her sister has recovered. Social History Social History Social History: The patient stated that she lives with her significant other. She was supposed to start working prior to but then was not able to work since everything was shut down. She stated that she used to use meth and she shot up with it. She denied any heroin. However she recently smoke some meth and stated she had a week moment and smokes marijuana and had meth and possibly fentanyl with that. She has 1 child but she does not have custody of. She does not have a durable power family law attorney for healthcare. And she is a full code. She stated she has not smoked in a couple days and she has not felt well. But typically smokes a half pack to a pack a cigarettes a day. She denies any alcohol. Smoking packs per day: 0.5 Smoking cigarettes per day: 10.0 Years smoked: 15 Smoking pack-years: 7.50 Smoking status: Current every day smoker Alcohol intake: unknown Substance use: unknown Substance use type: marijuana and methamphetamine Last use: 2-3 weeks ago Gender identity (if verbalized by the patient): Female Spiritual care concerns: No Exam Narrative: General: Alert, calm and cooperative, no acute distress, phonating, sitting comfortably during visit HEENT: Pupils equal round and reactive to light, extra ocular movements intact, no conjunctival injection, head atraumatic, neck supple without meningismus, poor dentition Cardiovascular: Regular rate and rhythm, no visible jugular venous distension Respiratory: Lungs clear to auscultation bilaterally, no wheezing/rales/rhonchi Abdominal: soft, non-tender, non-distended, no guarding, no rebound/peritoneal signs, no costovertebral tenderness to palpation Back: no midline tenderness to palpation, no step offs Extremities: No edema, palpable peripheral pulses, warm, well perfused, no tenderness to bilateral calves Neurological: Alert, moving all extremities symmetrically, ambulating without deficit Course Vital Signs Vital signs: Vital Signs Temperature 97.4 F L 04/21/23 03:43 Pulse Rate 88 04/21/23 03:43 Respiratory Rate 15 04/21/23 03:43 Blood Pressure 136/88 04/21/23 03:43 Pulse Oximetry 100 04/21/23 03:43 Oxygen Delivery Room Air 04/21/23 03:43 Temperature 97.4 F L 04/21/23 03:43 Pulse Rate 88 04/21/23 03:43 Respiratory Rate 15 04/21/23 03:43 Blood Pressure 136
--- NOTE | 2023-04-21 04:22 | PC.NURSE ---
poison control contacted; spoke with Jana MIRELES who states supportive care and monitoring.
[2023-04-21 04:52] LABS: Basophils Absolute Auto 0.1 K/mm3 (0.0-0.1); Basophils Percent Auto 0.7 % (0.2-1.2); Eosinophils Absolute Auto 0.8 K/mm3 (0-0.3); Eosinophils Percent Auto 10.1 % (0-4.4); Hematocrit 40.9 % (37.0-47.0); Hemoglobin 13.2 g/dL (12.0-15.0); Immature Granulocyte Absolute 0.02 K/mm3 (0.00-0.031); Immature Granulocyte Percent A 0.2 % (0-0.5); Lymphocytes Absolute Auto 2.33 K/mm3 (0.9-3.2); Lymphocytes Percent Auto 28.4 % (18.3-44.2); Mean Corpuscular HGB Conc 32.3 g/dl (32-36); Mean Corpuscular Hemoglobin 26.9 pg (26-34); Mean Corpuscular Volume 83.5 fl (80-100); Mean Platelet Volume 9.6 fl (7.4-10.4); Monocytes Absolute Auto 0.5 K/mm3 (0.1-0.6); Monocytes Percent Auto 5.7 % (2.6-8.5); Neutrophils Absolute Auto 4.5 K/mm3 (1.3-6.7); Neutrophils Percent Auto 54.9 % (45.5-73.1); Platelet Count Result 267 k/mm3 (150-375); Red Cell Distribution Width 13.9 % (11.5-14.5); White Blood Count 8.2 K/mm3 (4.5-10.0)
[2023-04-21 05:02] LABS: Acetaminophen < 10 ug/mL (10-30); Ethanol < 10 mg/dL (<10); Salicylate < 1.0 mg/dL (2-20)
[2023-04-21 05:06] LABS: Anion Gap 6 mmol/L (8-16); Blood Urea Nitrogen 11 mg/dL (7-17); Calcium 9.2 mg/dL (8.4-10.2); Carbon Dioxide 32 mmol/L (22-30); Chloride 101 mmol/L (98-107); Estimated CRCL calculation 78 ml/min; Estimated Glomerular Filt Rate > 60; Glucose 94 mg/dL (65-110); Potassium 3.3 mmol/L (3.4-5.0); Sodium 139 mmol/L (137-145)
[2023-04-21 05:09] LABS: Barbiturate Screen Urine Negative (Negative); Benzodiazepines Screen Urine Negative (Negative)
[2023-04-21 05:10] LABS: Cannabinoid Screen Urine Positive (Negative); Cocaine Screen Urine Negative (Negative); Methadone Screen Urine Negative (Negative); Opiate Screen Urine Negative (Negative); Phencyclidine Screen Urine Negative (Negative)
[2023-04-21] MEDS: POTASSIUM CHLORIDE 20 MEQ PACKET (FOR LIQUID) 40 MEQ PO (05:13)
[2023-04-21 05:42] LABS: Amphetamine Screen Urine Positive (Negative)
[2023-04-21 05:52] VITALS: BP 130/82; PULSE 84; RESP 15; O2SAT 100
[2023-04-21 05:52] LABS: SPREG INTERNAL CONTROL Positive; Serum Qual hCG Negative
== END 2023-04-21 05:54 | disposition home or self-care (01) ==
PROVIDERS: Emergency Provider Emergency Medicine
DX: T50.911A Poisoning by multiple unspecified drugs, medicaments and biological substances, accidental (unintentional), initial encounter (principal); F17.210 Nicotine dependence, cigarettes, uncomplicated
CPT/HCPCS: 36415; 71045; 74018; 80048; 80307; 81025; 84703; 85025; 93005; 99284; A9270